=== PATIENT | female | born 1990 | race Caucasian/White ===

== ENCOUNTER → 2017-03-11 | Outpatient (CLI) | payer BC ==
[2017-03-11 19:21] LABS: Basophils % (A) 0 %; CH 30.7; CHCM 31.6; Eosinophils # (A) 0.1 k/uL (0-0.7); Eosinophils % (A) 3 %; HCT 45.2 % (34.0-46.0); HDW 1.83; HGB 14.2 gm/dL (11.4-16.0); Luc # (Auto) 0.07; Luc % (Auto) 1; Lymphocytes # (A) 1.6 k/uL (1.0-4.8); Lymphocytes % (A) 33 %; MCH 30.6 pg (25.0-35.0); MCHC 31.4 g/dL (31.0-37.0); MCV 97.5 fL (80.0-100.0); Mean Platelet Volume 10.9; Monocytes # (A) 0.4 k/uL (0-1.0); Monocytes % (A) 7 %; Neutrophils # (A) 2.7 k/uL (1.3-7.7); Neutrophils % (A) 56 %; RBC 4.63 m/uL (3.80-5.40); RDW 12.5 % (11.5-15.5); WBC 4.8 k/uL (3.8-10.6); WBC (Perox) 4.71
[2017-03-11 19:33] LABS: ALT 35 U/L (9-52); AST 28 U/L (14-36); Alkaline Phosphatase 51 U/L (38-126); Anion Gap 8 mmol/L; Blood Urea Nitrogen 14 mg/dL (7-17); Calcium 10.4 mg/dL (8.4-10.2); Carbon Dioxide 30 mmol/L (22-30); Chloride 101 mmol/L (98-107); Cholesterol 253 mg/dL (<200); Glucose 80 mg/dL (74-99); HDL Cholesterol 91 mg/dL (40-60); Non-African American GFR(MDRD) >60 (>60 ml/min/1.73 sqM); Potassium 4.3 mmol/L (3.5-5.1); Sodium 139 mmol/L (137-145); Total Bilirubin 1.8 mg/dL (0.2-1.3); Total Protein 7.9 g/dL (6.3-8.2)
== END | disposition home or self-care (01) ==
LOC: MMGSC 12:15
PROVIDERS: ATTEND Family Medicine
DX: Z00.00 Encounter for general adult medical examination without abnormal findings (principal)
CPT/HCPCS: 36415; 80053; 80061; 84439; 84443; 85025

== ENCOUNTER → 2017-07-02 | Outpatient (CLI) | payer BC ==
[2017-07-03 00:32] LABS: Rheumatoid Factor 13 IU/mL (0-15)
[2017-07-04 09:57] LABS: Lyme IgG/IgM 0.1 Index
== END | disposition home or self-care (01) ==
LOC: MMGSC 15:46
PROVIDERS: ATTEND Orthopaedic Surgery
DX: A49.9 Bacterial infection, unspecified (principal); A69.20 Lyme disease, unspecified; M06.9 Rheumatoid arthritis, unspecified; Z88.1 Allergy status to other antibiotic agents
CPT/HCPCS: 36415; 85652; 86038; 86140; 86431; 86618

== ENCOUNTER → 2021-11-06 | Outpatient (CLI) | payer BC ==
--- NOTE | 2021-11-06 12:31 | MR ---
EXAMINATION TYPE: MR angio head wo con DATE OF EXAM: 11/06/2021 12:13 PM COMPARISON: NONE HISTORY: Dizziness, mastoiditis, family hx of aneurysm. Three-dimensional [id number] intracranial MRA was performed with multiple intensity projection im ages submitted and source data reviewed at the workstation. The vertebrobasilar system as well as intracranial portions of the internal carotid arteries and thei r major tributaries are patent. I do not see evidence for sizable aneurysm or vascular malformation. IMPRESSION: Normal study.
--- NOTE | 2021-11-06 12:38 | MR ---
PRE AND POSTCONTRAST ENHANCED MRI OF THE BRAIN: CLINICAL HISTORY: Dizziness, mastoiditis, family hx of aneurysm. CONTRAST: Gadavist 9ml. Multiplanar and multispin-echo imaging of the brain was performed both before and after the administr ation of contrast. The ventricles, basal cisterns and sulci overlying the cerebral convexities are within normal limits. There is no evidence for midline shift or mass effect. Acute intracranial hemorrhage or extra-axial collection is not evident. There are no abnormal areas of increased or decreased signal intensity within the brain parenchyma. Following contrast administration, there is no evidence for pathologic enhancement or enhancing mass. The paranasal sinuses and mastoid air cells are well-aerated. IMPRESSION: Unremarkable pre and postcontrast enhanced MRI of the brain.
== END | disposition home or self-care (01) ==
LOC: RADMRIMAIN 11:27
PROVIDERS: ATTEND Psychiatry & Neurology Neurology
DX: I67.1 Cerebral aneurysm, nonruptured (principal); H70.90 Unspecified mastoiditis, unspecified ear; R42 Dizziness and giddiness
CPT/HCPCS: 70544; 70553; A9585

== ENCOUNTER → 2022-04-18 | Outpatient (CLI) | payer BC ==
--- NOTE | 2022-04-18 16:04 | US ---
EXAMINATION TYPE: US mass soft tissue chest/back DATE OF EXAM: 04/18/2022 COMPARISON: NONE CLINICAL HISTORY: 31-year-old female R22.1 Supraclavicular nodule. Palpable lump x 3 weeks right supr aclavicular area. TECHNIQUE: Targeted ultrasound exam right supraclavicular region of the patient's palpable site. FINDINGS: Plate Shear Operator notes: Multiple imaged taken of patients area of concern. Oval nonvascular is oechoic compressible lesion seen= 3.0 x 2.2 x 0.8 cm. Contralateral images taken show no abnormality . IMPRESSION: Targeted scanning right supraclavicular region at the patient's palpable site. Findings suggest a 3.0 x 2.2 x 0.8 cm subcutaneous lipoma. If the area is symptomatic or growth is noted, consider surgical evaluation.
== END | disposition home or self-care (01) ==
LOC: RADUSWWP 12:18
PROVIDERS: ATTEND Family Medicine
DX: R22.1 Localized swelling, mass and lump, neck (principal)